=== PATIENT | female | born 1990 | race Caucasian/White ===

== ENCOUNTER 2016-12-06 17:54 | Emergency (ER) | payer OTHER ==
[2016-12-06 18:02] VITALS: BMI 35.2
[2016-12-06] MEDS ORDERED: NS 1,000 ML IV ONE ×2 (18:31)
--- NOTE | 2016-12-06 18:31 | EDPRACDOC ---
- General Information Chief Complaint: Flu-Like Symptoms Stated Complaint: SENT FROM URGENT CARE FOR POSSIBLE MENIGITIS Time Seen by Provider: 12/06/16 18:16 Information Source: Patient Home Medications: Home Medications Hydrocodone Bit/Acetaminophen [Lortab 5/325] 1 - 2 tab PO Q4H PRN #30 tab Ibuprofen Tablet [Motrin] 800 mg PO TID #30 tab 09/15/15 Propoxyphene/Acetaminophen [Darvocet-N 100 Tablet] 1 each PO Q4-6H PRN #30 tablet 09/15/15 Ibuprofen Tablet [Motrin] 800 mg PO TID #30 tab 12/06/16 Ondansetron HCl [Zofran] 4 mg PO TID PRN #14 tablet 12/06/16 Allergies/Adverse Reactions: Allergies Allergy/AdvReac Type Severity Reaction Status Date / Time acetaminophen [From Vicodin] Allergy Hives* Verified 09/15/15 09:49 hydrocodone Allergy Hives* Verified 09/15/15 09:49 hydrocodone bitartrate Allergy Hives* Verified 09/15/15 09:49 [From Vicodin] latex Allergy Rash-Locali Verified 09/15/15 09:49 zed Penicillins Allergy Hives* Verified 09/15/15 09:49 - History of Present Illness Onset: HIDE SHAKER HPI: FEVER, CHILLS, RIGORS FOR 2 DAYS. ASSOCIATED WITH PAIN ALL OVER PAIN IN HER LEGS PAIN IN HER BACK. ALSO NAUSEA VOMITING TIMES SEVERAL AND 1 EPISODE OF DIARRHEA. SOME GENERALIZED ABDOMINAL PAIN WELL CRAMPY IN NATURE. HOWEVER TODAY THE PATIENT HAS DEVELOPED SIGNIFICANT HEADACHE AND BACK PAIN AGGRAVATED BY SITTING AND MOVEMENT. PATIENT WAS SEEN AT URGENT CARE PRIOR TO ARRIVAL, FLU NEG, WBC ELEVATED, GIVEN HER HEADACHE AND FEVER NO IS A CONCERN FOR MENINGITIS AND HAS BEEN REFERRED TO THE EMERGENCY DEPARTMENT FOR CONSIDERATION OF MENINGITIS. INFLUENZA TESTING AT URGENT CARE WAS REPORTED TO BE NEGATIVE. Rhinorrhea: Denies: Clear, Bloody, Brown, Green, Purulent, None, O Fever Severity/Quality: Reports: greater than 102 F ED Past Medical History - History Reviewed Yes Nurses notes reviewed and agree except as marked - Patient Medical History GI/ History: Reports: PMH GI Yes/No Other (ENDOMETRIOSIS AND PCOS) Psychological History: Denies: Depression Surgical History: Reports: Appendectomy, Cholecystectomy - Family Medical History Reports: Hypertension (mother), Cancer (GF PROSTATE CA, gm ovarian), Stroke ( grandmother). Denies: Diabetes, Cardiac Disorders - Social Medical History Smoking Status: Never smoker ETOH: None Substance Abuse: None Lives With: Significant Other Lives In: Home EDM Review of Systems - Review of Systems ROS Negative Except as Marked: Yes All systems reviewed and were negative except as marked - Physical Exam Constitutional: Alert (Awake), Other (SHAKING RIGORS) Oriented to: Time, Person, Place Last recorded Vital Signs: Last Vital Signs Temp 102.9 F H 12/06/16 17:57 Pulse 140 H 12/06/16 17:57 Resp 20 12/06/16 17:57 BP 153/72 12/06/16 17:57 Pulse Ox 100 12/06/16 17:57 Oxygen Pulse Oxygen Saturation 100 O2 Device Room Air Oxygen Flow Rate Fraction of Inspired Oxygen ( FIO2) - HEENT Head: Normal ( normocephalic) Eye Exam: Normal (PERRL, EOMI, Sclera white), Other (NO PAPPILOEDEMA ELIDA). negative: Pale Conjunctiva, Scleral Icterus Oropharynx: Normal (Pharynx:Moist without exudate,Gums-no swelling). negative: Membranes Dry Nose: No Symptoms Reported (septum midline) Neck: Normal (FROM, trachea at midline) - Respiratory/Cardiovascular Respiratory: Normal - CTA (BBS clear to auscultation without adventitious sounds ) Cardiovascular: Normal (RRR without murmur, gallop or rub) - GI Auscultation: Normal (NABS) Palpation: Normal (Soft,No rebound or guarding, non distended) Tenderness: Diffuse, Mild. negative: Guarding, Rebound, Rigidity Barbour's Sign: Negative - Musculoskeletal Back: Normal (Non-Tender) Extremities: Normal (Normal tone, Pulses 2+ No cyanosis or edema, FROM) - Integumentary Skin: Normal, Warm, Dry Lymphatics: Normal (no adenopathy) - Neurologic Memory Impaired: Normal Motor Function: Normal (Normal tone, Pulses 2+ No cyanosis or edema, FROM) Cranial Nerve: Normal (CN II-X11 intact sensation, strength 5/5) Cerebellar: Normal Mood Description: Normal Perception: Normal ED Procedures - Lumbar Puncture Informed of risks, benefits and alternatives described: Yes Informed Consent Signed: Written Indication: Possible Infection Prep: Chlorhexadine Prep Equipment used during procedure: Hat and Mask, Sterile Gown, Sterile Gloves Anesthetic: Lidocaine Spinal Needle Gauge used: 20 Needle Insertion Site: L4 Interspace Puncture was successful: Yes Fluid: Clear CSF removed (6CC) Lumbar Puncture Notes:: 12/06/16 21:24 ONE ATTEMPT, NO COMPLICATIONS - Re-evaluation Re-evaluation 3 Re-evaluation Time: 21:21 General: Pleasant FEMALE No acute distress. Neuro: Alert Oriented, calm and cooperative HEENT: Normocephalic atraumatic. Sclerae nonicteric. Extraocular movements intact. Oral mucosa pink and moist. Neck: Supple. Nontender. Good range of motion. No masses. Trachea is midline. No cervical adenopathy. Lungs: Clear to auscultation. No rhonchi or wheezing. Heart: Regular rate and rhythm. No murmur. Abdomen: Soft, nontender, nondistended. No hepatosplenomegaly. No abdominal wall defects or masses. No guarding or rebound. Extremities: no cyanosis clubbing or edema. No palpable deformities. Skin: Warm and dry, no rashes - Results 12/06/16 18:40 12/06/16 18:40 - Diagnostic Imaging Chest Image interpreted by: Radiologist Patient Name: YARA CLEMENT LOC: ED : 1990 AGE: 26 Order Date:12/06/16 Date of Service:05/17 Report # [id number] Ord Physician: Jessica Mancilla MD Exam # [id number] Emergency Physician: Jessica Mancilla MD Exam(s): [id number] RAD/DG CHEST 2V CLINICAL DATA: Shortness of breath. Fever and chills. EXAM: CHEST 2 VIEW COMPARISON: None. FINDINGS: The heart size and mediastinal contours are within normal limits. Both lungs are clear. The visualized skeletal structures are unremarkable. IMPRESSION: No active cardiopulmonary disease. Electronically Signed By: Marta Martínez M.D. On: 12/06/2016 21:52 Electronically Signed By: Marta Martínez MD Electronically Signed Date/Time: [id number] Dictate Date/Time: 12/06/162150 Technologist: Matthieu Riley Transcribed By: Nicole Transcribed Date/Time: 01/06/17 2152 - Departure Disposition: Home Final Diagnosis: Viral syndrome, Influenza-like illness Education/Counseling Given To: Patient Education/Counseling Given Regarding: Diagnosis, Treatment, Prognosis Prescriptions: Ibuprofen Tablet [Motrin] 800 mg PO TID #30 tab Ondansetron HCl [Zofran] 4 mg PO TID PRN #14 tablet PRN Reason: NAUSEA OR VOMITING Additional Instructions: Drink sips of Gatorade every 2-3 minutes while awake. Do NOT drink large volumes of fluid at once. If you vomit, take the nausea-vomiting medicine prescribed, wait ~ 30 minutes, and restart the sipping process. Return to the Emergency Department if you think you are getting dehydrated, have persistent abdominal pain that is unrelenting, have worse or different symptoms, or any concerns.
[2016-12-06 18:52] LABS: LEUKOCYTES/URINE NEG (NEGATIVE); NITRITE/URINE NEG (NEGATIVE); URINE OCCULT BLOOD 2+ (NEG/TRACE); WBC/URINE 0-2 (0-5)
[2016-12-06 18:55] LABS: MPV 9.6 fL (7.4-10.4)
[2016-12-06 19:02] LABS: BLOOD UREA NITROGEN 17 MG/DL (7-17); CALCIUM 9.5 MG/DL (8.4-10.2); CALCULATED OSMOLALITY 266 MOs/Kg (270-290); CHLORIDE 98 mEq/L (98-107); GLUCOSE 101 MG/DL (70-99); SODIUM LEVEL 137 mEq/L (137-146); TOTAL PROTEIN 7.9 G/DL (6.3-8.2)
[2016-12-06 20:01] LABS: SEG NEUTROPHIL 92 % (45-76)
[2016-12-06] MEDS ORDERED: MORPHINE 4 MG/ML INJECTION IV ONE ×2 (20:35→21:17)
[2016-12-06] MEDS ORDERED: ACETAMINOPHEN 325 MG/TAB TABLET PO ONE (20:35)
[2016-12-06] MEDS ORDERED: Lidocaine 2%-Epinephrine 1:100,000 20ml vial ONE (21:07)
[2016-12-06] MEDS ORDERED: CEFTRIAXONE 1 GM in D5W 100 ML IV ONE (21:17)
[2016-12-06 21:52] LABS: # SQ mm COUNTED 9; CSF RBC COUNT 0 CU mm (<1); CSF WBC COUNT 0 CU mm (0-5); DILUTION FACTOR 1x; RBC COUNT #1 0; RBC COUNT #2 0; RBC COUNT DIFFERENCE 0; TUBE# #4; WBC COUNT #1 0; WBC COUNT #2 0; WBC COUNT DIFFERENCE 0
[2016-12-06 21:53] LABS: # SQ mm COUNTED 9; CSF RBC COUNT 3 CU mm (<1); CSF WBC COUNT 0 CU mm (0-5); DILUTION FACTOR 1x; RBC COUNT #1 3; RBC COUNT #2 2; RBC COUNT AVERAGE 2.5; RBC COUNT DIFFERENCE 1; TUBE# #1; WBC COUNT #1 0; WBC COUNT #2 0; WBC COUNT DIFFERENCE 0
--- NOTE | 2016-12-06 21:55 | DIRPT ---
CLINICAL DATA: Shortness of breath. Fever and chills. EXAM: CHEST 2 VIEW COMPARISON: None. FINDINGS: The heart size and mediastinal contours are within normal limits. Both lungs are clear. The visualized skeletal structures are unremarkable. IMPRESSION: No active cardiopulmonary disease. Electronically Signed By: Marta Martínez M.D. On: 12/06/2016 21:52
[2016-12-06 22:55] VITALS: BP 107/54; PULSE 109; TEMP 101.1
== END 2016-12-06 22:50 | disposition home or self-care (01) ==
LOC: ED 17:54
DX: J11.1 Influenza due to unidentified influenza virus with other respiratory manifestations (principal)
CPT/HCPCS: 36415; 62270; 71020; 80053; 81001; 81025; 82945; 84157; 85007; 85027; 87070; 87205; 89050; 89051; 96361; 96365; 96375; 96376; 99284; J0696; J2270; J3490; J7060